=== PATIENT | female | born 1945 | race Asian ===

== ENCOUNTER 2020-02-14 07:43 | Emergency (ER) | payer MEDICARE, OTHER ==
[~2020-02-14] VITALS: Ht 154.9 cm; Wt 53.0 kg
[~2020-02-14 07:43] MED LIST: LOSA25TA71 PO; TRAM50TA4 PO; VERA240T
[2020-02-14 07:49] VITALS: BP 152/82
[2020-02-14] MEDS ORDERED: APIX2.5T PO (07:54)
== END 2020-02-14 08:18 | disposition home or self-care (01) ==
LOC: EMS 07:44
DX: M54.2 Cervicalgia (principal); M54.9 Dorsalgia, unspecified; I10 Essential (primary) hypertension; Z76.0 Encounter for issue of repeat prescription; Z88.0 Allergy status to penicillin; Z79.899 Other long term (current) drug therapy

== ENCOUNTER 2020-06-02 07:19 | Emergency (ER) | payer MEDICARE, OTHER ==
[~2020-06-02] VITALS: Ht 149.9 cm; Wt 59.1 kg
[~2020-06-02 07:19] MED LIST changes: +APIX2.5T PO
[2020-06-02 07:24] VITALS: BP 120/66
[2020-06-02] MEDS ORDERED: BACITRACIN 0.9 GM PACKET OINTMENT TP ONE (07:45)
[2020-06-02] MEDS ORDERED: LIDOCAINE 1% 10 ML VIAL INJ ONE (07:45)
[2020-06-02] MEDS ORDERED: PERTUSS(ACELL),DIPH,TET VAC/PF 0.5 ML VIAL IM ONE (07:45)
== END 2020-06-02 08:33 | disposition home or self-care (01) ==
LOC: EMS 07:24
DX: S61.411A Laceration without foreign body of right hand, initial encounter (principal); I10 Essential (primary) hypertension; G89.29 Other chronic pain; Z88.0 Allergy status to penicillin; W45.8XXA Other foreign body or object entering through skin, initial encounter; Y93.89 Activity, other specified; Y92.89 Other specified places as the place of occurrence of the external cause; Y99.8 Other external cause status
CPT/HCPCS: 12002; 90471; 90715; 99283; J3490

== ENCOUNTER 2020-06-14 10:56 | Emergency (ER) | payer MEDICARE, OTHER ==
[~2020-06-14] VITALS: Ht 149.9 cm; Wt 59.1 kg
[2020-06-14 11:44] VITALS: BP 117/67
== END 2020-06-14 11:44 | disposition home or self-care (01) ==
LOC: EMS 10:56
DX: S61.210D Laceration without foreign body of right index finger without damage to nail, subsequent encounter (principal); S61.212D Laceration without foreign body of right middle finger without damage to nail, subsequent encounter; I10 Essential (primary) hypertension; G89.29 Other chronic pain; Z88.0 Allergy status to penicillin; X58.XXXD Exposure to other specified factors, subsequent encounter
CPT/HCPCS: Z7502

== ENCOUNTER 2020-07-27 12:24 | Emergency (ER) | payer MEDICARE, OTHER ==
[~2020-07-27] VITALS: Ht 149.9 cm; Wt 60.5 kg
[~2020-07-27 12:24] MED LIST changes: +LOSA25TA21 PO; -LOSA25TA71 PO
[2020-07-27] MEDS ORDERED: ATOR10TA84 PO (12:31)
[2020-07-27] MEDS ORDERED: TraMADol HCL 50 MG TABLET PO ONE (14:15)
[2020-07-27 14:28] VITALS: BP 120/69
== END 2020-07-27 14:33 | disposition home or self-care (01) ==
LOC: EMS 12:27
DX: M54.2 Cervicalgia (principal); G89.29 Other chronic pain; I10 Essential (primary) hypertension; Z76.0 Encounter for issue of repeat prescription; Z88.0 Allergy status to penicillin

== ENCOUNTER 2020-12-17 17:06 | Emergency (ER) | payer MEDICARE, OTHER ==
[~2020-12-17] VITALS: Ht 149.9 cm; Wt 61.4 kg
[~2020-12-17 17:06] MED LIST changes: +ATOR10TA84 PO
[2020-12-17 21:15] VITALS: BP 116/73
== END 2020-12-17 21:22 | disposition home or self-care (01) ==
LOC: EMS 17:08
DX: M48.32 Traumatic spondylopathy, cervical region (principal); M54.2 Cervicalgia; M43.16 Spondylolisthesis, lumbar region; I10 Essential (primary) hypertension; Z88.0 Allergy status to penicillin; V49.9XXA Car occupant (driver) (passenger) injured in unspecified traffic accident, initial encounter; Y93.89 Activity, other specified; Y92.89 Other specified places as the place of occurrence of the external cause; Y99.8 Other external cause status
CPT/HCPCS: 70450; 72052; 72080; 99284

== ENCOUNTER 2021-09-03 16:36 | Emergency (ER) | payer MEDICARE, OTHER ==
[~2021-09-03] VITALS: Ht 152.4 cm; Wt 63.6 kg
[2021-09-03 18:52] VITALS: BP 122/80
== END 2021-09-03 19:55 | disposition home or self-care (01) ==
LOC: EMS 16:36
DX: S16.1XXA Strain of muscle, fascia and tendon at neck level, initial encounter (principal); S09.90XA Unspecified injury of head, initial encounter; I10 Essential (primary) hypertension; Z88.0 Allergy status to penicillin; Z79.899 Other long term (current) drug therapy; W19.XXXA Unspecified fall, initial encounter; Y93.89 Activity, other specified; Y92.89 Other specified places as the place of occurrence of the external cause; Y99.8 Other external cause status
CPT/HCPCS: 70450; 72125; 99285

== ENCOUNTER 2022-10-25 13:50 | Emergency (ER) | payer MEDICARE, OTHER ==
[~2022-10-25] VITALS: Ht 154.9 cm; Wt 59.1 kg
[~2022-10-25 13:50] MED LIST changes: +ATOR10TA PO; -ATOR10TA84 PO; +LOSA-381 PO; -LOSA25TA21 PO
[2022-10-25 13:58] VITALS: BP 124/78
[2022-10-25] MEDS ORDERED: TRAM-559 PO (14:55)
[2022-10-25] MEDS ORDERED: TraMADol HCL 50 MG TABLET PO ONE (15:15)
== END 2022-10-25 15:26 | disposition home or self-care (01) ==
LOC: EMS 13:51
DX: G89.29 Other chronic pain (principal); M54.2 Cervicalgia; M19.90 Unspecified osteoarthritis, unspecified site; I10 Essential (primary) hypertension; Z88.0 Allergy status to penicillin; Z76.0 Encounter for issue of repeat prescription
CPT/HCPCS: 99283

== ENCOUNTER 2023-05-05 20:00 | Emergency (ER) | payer MEDICARE, OTHER ==
[~2023-05-05] VITALS: Ht 160 cm; Wt 56.8 kg
[2023-05-05 21:15] VITALS: BP 119/87; PULSE 89; RESP 19; TEMP 98.3
[2023-05-05] MEDS ORDERED: TraMADol HCL 50 MG TABLET PO ONE (21:15)
== END 2023-05-05 21:30 | disposition home or self-care (01) ==
LOC: EMS 20:02
DX: M54.2 Cervicalgia (principal); M19.90 Unspecified osteoarthritis, unspecified site; I10 Essential (primary) hypertension; Z76.0 Encounter for issue of repeat prescription; Z88.0 Allergy status to penicillin
CPT/HCPCS: 99283

== ENCOUNTER → 2024-08-22 | Emergency (ER) | payer OTHER ==
[~2024-08-22] VITALS: Ht 157.5 cm; Wt 63.6 kg
[~2024-08-22] MED LIST changes: +ATOR20TA65 PO; +LOSA-382 PO; +TRAM50TA5 PO; +VERA120C2 PO
[2024-08-22 13:41] VITALS: TEMP 98.2
[2024-08-22] MEDS: KETOROLAC TROMETHAMINE 30 MG/ML VIAL IM ONE (15:32)
[2024-08-22] MEDS: LIDOCAINE 5% TRANSDERMAL PATCH TD ONE (15:32)
[2024-08-22 16:42] VITALS: BP 126/64; PULSE 88; RESP 18; O2SAT 98
== END | disposition home or self-care (01) ==
LOC: EMS 13:32
DX: M25.561 Pain in right knee (principal); M25.562 Pain in left knee; M19.90 Unspecified osteoarthritis, unspecified site; I10 Essential (primary) hypertension; Z88.0 Allergy status to penicillin; Z79.01 Long term (current) use of anticoagulants; Z79.899 Other long term (current) drug therapy
CPT/HCPCS: 99283; 96372; J1885

== ENCOUNTER 2024-11-18 16:30 | Emergency (ER) | payer OTHER ==
[~2024-11-18] VITALS: Ht 154.9 cm; Wt 66.1 kg
[~2024-11-18 16:30] MED LIST changes: -ATOR10TA PO; -LOSA-381 PO; -TRAM50TA4 PO; -VERA240T
[2024-11-18 16:45] LABS: BASOPHILS % (AUTO) 0.6 % (0.0-2.0); EOSINOPHILS % (AUTO) 1.4 % (1.0-6.0); HEMATOCRIT 48.6 % (36-46); HEMOGLOBIN 15.6 g/dL (12.0-16.0); LYMPHOCYTES # (AUTO) 2.7 K/uL (1.0-4.8); LYMPHOCYTES % (AUTO) 28.5 % (22.0-44.0); MEAN CORPUSCULAR HEMOGLOBIN 31.6 pg (26.0-34.0); MEAN CORPUSCULAR VOLUME 99 fL (80-100); MONOCYTES % (AUTO) 10.6 % (2.0-9.0); NEUTROPHILS # (AUTO) 5.5 K/uL (1.8-7.7); NEUTROPHILS % (AUTO) 58.9 % (40.0-70.0); PLATELET COUNT (AUTO) 334 K/uL (150-450); RED BLOOD CELL COUNT(AUTO) 4.93 MIL/uL (4.00-5.20); RED CELL DISTRIBUTION WIDTH 13.7 % (11.5-14.5); WHITE BLOOD COUNT (AUTO) 9.3 K/uL (4.5-11.0)
[2024-11-18 16:53] LABS: CALCIUM, TOTAL 8.8 mg/dL (8.8-10.5); CREATININE 1.1 mg/dL (0.60-1.30); POTASSIUM 3.5 mmol/L (3.5-5.1)
[2024-11-18 16:55] LABS: PROTHROMBIN TIME 11.3 SEC (9.4-11.6)
[2024-11-18 17:00] LABS: ALBUMIN 3.1 g/dL (3.4-5.0); BILIRUBIN,TOTAL 0.5 mg/dL (0.1-1.0); TOTAL PROTEIN, SERUM 6.7 g/dL (6.4-8.2)
[2024-11-18 17:01] LABS: TROPONIN I-HIGH SENSITIVITY 10 ng/L (<51)
[2024-11-18 17:33] LABS: CHOL/HDL RATIO 2.3 (3.9-5.7)
[2024-11-18 18:57] VITALS: BP 163/101; PULSE 91; RESP 19; TEMP 98.2; O2SAT 95
== END 2024-11-18 18:57 | disposition short-term general hospital (02) ==
LOC: EMS 16:30
DX: R53.1 Weakness (principal); R47.81 Slurred speech; I48.20 Chronic atrial fibrillation, unspecified; R62.7 Adult failure to thrive; I10 Essential (primary) hypertension; Z88.0 Allergy status to penicillin; Z79.01 Long term (current) use of anticoagulants; Z79.899 Other long term (current) drug therapy
CPT/HCPCS: 71045; 80053; 80061; 82948; 82962; 84484; 85025; 85610; 93005; 99291; 36415-L1; 36415-TC; 70450; 70450-TC